=== PATIENT | male | born 1970 | race Caucasian/White ===

== ENCOUNTER 2018-06-18 10:00 | Inpatient (IN) | payer OTHER ==
[~2018-06-18 10:00] MED LIST: Acetaminophen 1,000 MG in Premix Bag 1 BAG IV SCH; EPINEPHRINE INJECT SCH; Famotidine 20 MG/2 ML SDV IVPUSH SCH; KETOROLAC INJECT SCH; Midazolam 1 MG/ML 2 ML SDV ONE; Propofol 200 MG/20 ML SDV ONE; ROPIVACAINE INJECT SCH; Ropivacaine 49.25 ML, Ketorolac 30 MG, EPINEPHrine 0.5 MG, cloNIDine 80 MCG in Sodium C... INJECT SCH; Scopolamine 1.5 MG Transdermal Patch TRDERM SCH; Sodium Chloride 0.9% 20 ML ONE; Tranexamic Acid 2,000 MG in Sodium Chloride 0.9% 100 ML IV ONE; [UNRECOGNIZED DRUG - OTHER] INJECT SCH; ceFAZolin 1 GM Vial ONE; ceFAZolin 2 GM in Premix Bag 1 BAG IV SCH; fentaNYL 100 MCG/2 ML SDV ONE
[2018-06-18] MEDS: Lactated Ringers 1,000 ML IV SCH (11:15)
--- NOTE | 2018-06-18 11:25 | PCM.PREANE ---
Preanesthetic Assessment - Anesthesia/Transfusion/Family Hx Anesthesia History: Prior Anesthesia Without Reaction Family History of Anesthesia Reaction: No Transfusion History: No Prior Transfusion(s) Intubation History: Unknown - Review of Systems General: No Symptoms Pulmonary: No Symptoms Cardiovascular: No Symptoms Gastrointestinal: No Symptoms Neurological: No Symptoms Other: Reports: None - Physical Assessment O2 Sat by Pulse Oximetry: 95 Respiratory Rate: 16 Vital Signs: Last Vital Signs Temp 36.9 C 06/18/18 11:08 Pulse 56 L 06/18/18 11:08 Resp 16 06/18/18 11:08 BP 153/84 H 06/18/18 11:08 Pulse Ox 95 06/18/18 11:08 Height: 1.8 m Weight: 80.286 kg ASA Class: 2 Mental Status: Alert & Oriented x3 Airway Class: Mallampati = 2 Dentition: Reports: Normal Dentition Thyro-Mental Finger Breadths: 3 Mouth Opening Finger Breadths: 3 ROM/Head Extension: Full Lungs: Clear to Auscultation, Normal Respiratory Effort Cardiovascular: Regular Rate, Regular Rhythm - Allergies Allergies/Adverse Reactions: Allergies Allergy/AdvReac Type Severity Reaction Status Date / Time No Known Allergies Allergy Verified 06/18/18 11:18 - Blood Blood Available: No - Anesthesia Plan Pre-Op Medication Ordered: None - Acknowledgements Anesthesia Type Planned: Spinal (general anesthesia back-up plan) PreAnesthesia Questionnaire HEENT History: Reports: Allergic Rhinitis Cardiovascular History: Reports: Heart Murmur, Hypertension, Other (See Below) Other Cardiovascular History: recently started on antihypertension medication, has a heart murmur (was checked by Cardiology) Musculoskeletal History: Reports: Fracture, Osteoarthritis (left knee) Other Musculoskeletal History: hx of bilateral fx clavicles Neurological History: Reports: Concussion - Past Surgical History Male Surgical History: Reports: Nephrectomy Other Male Surgeries/Procedures: hx of left Partial Nephrectomy at age 9 Musculoskeletal Surgical History: Reports: Arthroscopic Knee Other Musculoskeletal Surgeries/Procedures:: hx of arthroscopies left knee x4 - SUBSTANCE USE Smoking Status *Q: Current Every Day Smoker (1ppd) Tobacco Use Within Last Twelve Months: Cigarettes Recreational Drug Use History: No - HOME MEDS Home Medications: Home Meds Ibuprofen [Advil] 200 mg PO ASDIRECTED PRN 06/14/18 [History] amLODIPine [Norvasc] 5 mg PO QAM 06/15/18 [History] - CURRENT (IN HOUSE) MEDS Current Meds: Current Medications Famotidine (Pepcid) 40 mg IVPUSH ONARRIVE [facility] Last Admin: 06/18/18 11:16 Dose: 40 mg Acetaminophen 1,000 mg/ Premix 100 mls @ 400 mls/hr IV ONARRIVE [facility] Last Admin: 06/18/18 11:18 Dose: 400 mls/hr Cefazolin Sodium/Dextrose 2 gm (/ Premix) 50 mls @ 100 mls/hr IV ONCALL [facility] Lactated Ringer's (Ringers, Lactated) 1,000 mls @ 100 mls/hr IV ASDIRECTED [facility] Last Admin: 06/18/18 11:15 Dose: 100 mls/hr Ropivacaine 49.25 ml/Ketorolac Tromethamine 30 mg/Epinephrine HCl 0.5 mg/ Sodium Chloride 75 mls @ 37.5 mls/min INJECT ASDIRECTED [facility] Scopolamine (Transderm-Scop) 1.5 mg TRDERM ONARRIVE [facility] Last Admin: 06/18/18 11:16 Dose: 1.5 mg Discontinued Medications Cefazolin Sodium (Ancef) Confirm Administered Dose 2 gm .ROUTE .STK-MED ONE Stop: 06/18/18 09:27 Fentanyl (Sublimaze) Confirm Administered Dose 100 mcg .ROUTE .STK-MED ONE Stop: 06/18/18 09:23 Ropivacaine 49.25 ml/Ketorolac Tromethamine 30 mg/Epinephrine HCl 0.5 mg/ Clonidine HCl 80 mcg/ Sodium Chloride 75 mls @ 50 mls/sec INJECT ASDIRECTED [facility] Tranexamic Acid 2,000 mg/ (Sodium Chloride) 120 mls @ 600 mls/hr IV ASDIRECTED ONE Stop: 06/18/18 08:11 Sodium Chloride (Normal Saline) Confirm Administered Dose 20 mls @ as directed .ROUTE .STK-MED ONE Stop: 06/18/18 09:27 Midazolam HCl (Versed 1 Mg/Ml) Confirm Administered Dose 4 mg .ROUTE .STK-MED ONE Stop: 06/18/18 09:23 Propofol (Diprivan 20 Ml) Confirm Administered Dose 400 mg .ROUTE .STK-MED ONE Stop: 06/18/18 09:22 Tranexamic Acid (Cyklokapron) Confirm Administered Dose 2,000 mg .ROUTE .STK- MED ONE Stop: 06/18/18 08:06
[2018-06-18] MEDS ORDERED: Midazolam 1 MG/ML 2 ML SDV ONE (12:21)
[2018-06-18] MEDS ORDERED: Glycopyrrolate 0.2 MG/ML SDV ONE (12:36)
[2018-06-18] MEDS ORDERED: ePHEDrine 50 MG/ML SDV ONE (13:03)
[2018-06-18] MEDS ORDERED: Propofol 200 MG/20 ML SDV ONE (13:26)
[2018-06-18] MEDS ORDERED: Aluminum Hydroxide/Magnesium Hydroxide/Simethicone Susp 30 ML Cup PO PRN (13:40)
[2018-06-18] MEDS ORDERED: diphenhydrAMINE 25 MG Cap PO PRN (13:40)
[2018-06-18] MEDS ORDERED: Bisacodyl 10 MG Supp RECTAL PRN (13:40)
[2018-06-18] MEDS ORDERED: Ondansetron 4 MG/2 ML SDV IVPUSH PRN (13:40)
[2018-06-18] MEDS ORDERED: Morphine PF 30 MG/30 ML PCA Vial IV PRN (13:40)
[2018-06-18] MEDS ORDERED: Sodium Chloride 0.9% 10 ML Syringe FLUSH PRN (13:42)
[2018-06-18] MEDS ORDERED: Sodium Chloride 0.9% 2.5 ML Syringe FLUSH PRN (13:42)
--- NOTE | 2018-06-18 14:00 | PCM.OPNOTE ---
- General Post-Op/Procedure Note Date of Surgery/Procedure: 06/18/18 Operative Procedure(s): L TKA Post-Op Diagnosis: DJD left knee Anesthesia Technique: Moderate Sedation, Spinal Primary Surgeon: Tricia Parker Activity Specialist: Hazel Hernández Activity Specialist: Gaby Hough EBL in mLs: 50 Condition: Good Free Text/Narrative:: #[id number] Intake & Output 06/17/18 06/18/18 06/18/18 22:59 06:59 14:59 Output Total 300 Balance -300 tt=46 min
[2018-06-18] MEDS: Ketorolac 30 MG/ML SDV IVPUSH SCH ×2 (14:21→19:11)
--- NOTE | 2018-06-18 15:06 | OR ---
SURGEON: Tricia Parker MD DATE OF PROCEDURE: 06/18/2018 PREOPERATIVE DIAGNOSIS: Degenerative joint disease, left knee, tricompartmental. POSTOPERATIVE DIAGNOSIS: Degenerative joint disease, left knee, tricompartmental. PROCEDURE PERFORMED: Left total knee arthroplasty. PRIMARY SURGEON: Tricia Parker MD. SMEARER: Hazel Hernández PA-C; CHRISTOPHER Bowman; and Duane Rosa MD, PGY2. REASON AND ROLE FOR SMEARER: Retraction, prepping, draping, positioning, and closure assistance. ANESTHESIA: Spinal with sedation. ESTIMATED BLOOD LOSS: 50 mL. TOURNIQUET TIME: 46 minutes. COMPLICATIONS: None. DVT PROPHYLAXIS: PAS boot and YARELIS hose to the nonoperative leg. IMPLANTS USED: Jael Persona femoral component size 8 standard (LPS), tibial component size F, 10 mm all-polyethylene articular surface, and 35 mm all-polyethylene patella. INTRAOPERATIVE FINDINGS: Showed severe tricompartmental degenerative joint disease with grade 4 chondromalacia in all 3 compartments. The majority of wear was noted along the trochlear groove and along the undersurface of the patella. Osteophyte formation was also noted. He does have a history of Alexei-Schlatter's disease with a prominent tibial tubercle. Mild synovitis was noted within the suprapatellar compartment. BRIEF HISTORY: Ko is a 48-year-old male who has had complaint of progressive left knee pain. X-rays did show tricompartmental degenerative changes. Due to his lack of response to conservative treatment, I did recommend surgical intervention. The risks and goals of the procedure were discussed with the patient and were documented preoperatively. He agreed to proceed. DESCRIPTION OF PROCEDURE: The patient was properly identified and brought to the operating room. The patient was then transferred from the operating room cart and placed on the operating table in a supine position. Anesthesia was administered by the anesthesia staff. After adequate anesthesia was obtained, a well-padded tourniquet was applied to the surgical lower extremity. Bobby catheter was placed. The lower extremity was then prepped in standard fashion using ChloraPrep solution. It was then sterilely draped. A time-out was performed to ensure correct site and procedure. Preoperative antibiotics were given along with one gram tranexamic acid IV. The surgical site had been marked preoperatively. An Esmarch was used to exsanguinate the right lower extremity and the tourniquet was inflated. An incision was made over the anterior aspect of the knee. The subcutaneous tissues were dissected down to the level of the fascia. A medial parapatellar approach to the knee was made. A portion of the infrapatellar fat pad was then excised. The distal femur was then exposed. The step reamer was used to gain access to the intramedullary canal. This was placed in 6 degrees of valgus. Pins were placed. The distal femoral cutting block was placed and the distal femoral cut was made. Instrumentation was then removed. The femur was then sized. Both Whitesides' line and the epicondylar axis were then marked with electrocautery. The 4-in-1 cutting block was placed. This was placed in a slightly externally rotated position, which corresponded well with the previously drawn lines. The cutting guide was then pinned into position. An Mark wing guide was used to check the depth of resection of our anterior condylar cut and it was felt that no notching would occur. The anterior condylar cut was then made followed by the posterior condylar cut. Both the posterior chamfer and anterior chamfer cuts were then made. The cutting block was then removed along with the excess bony remnants. We then turned our attention to the tibia. The anterior cruciate ligament and posterior cruciate ligament were released and a posterior cruciate ligament retractor was placed to allow the tibia to be pulled anteriorly. The tibial extra-medullary guide was then positioned. We chose to take approximately 2 mm off the lowest side. The proximal tibia cutting guide was then placed and screwed into position. The proximal tibial resection was then made with care being taken to protect the patellar tendon. The bony resection was then removed. The remainder of the medial and lateral meniscus were then excised. Care was taken to protect the popliteus tendon. The tibia was then sized to the appropriate size. The distal femur was then elevated. The posterior capsule was stripped off the distal femur both medially and laterally. The posterior capsule along with the medial and lateral gutters were then injected with a standard mixture consisting of epinephrine, Toradol, and ropivacaine, unless any allergies were found preoperatively. The femoral component was then placed onto the distal femur in a slightly lateral position. This fit the femur well. A box cut was then made without difficulty. This was then removed. The tibial trial along with the polyethylene liner was then placed. The knee came easily into full extension and was stable to varus and valgus stressing both in full extension and flexion. Any additional releases were performed at this time. We then returned our attention to the patella. The patella was everted and towel clamps were used to hold the patella in position. It was resected to a 15 millimeter thickness. It was then sized to the appropriate size. It was prepared in the usual fashion after placing the predetermined size clamps. This was placed in a slightly superior and medial position. The clamp was then removed. The patellar trial button was placed. The knee was taken through a range of motion using the no-touch technique. The patella tracked centrally. A drop dale was then placed to check alignment. All instruments were then removed from the knee. The tibial sizer was then placed on the tibia. The tibia was prepared in the usual fashion using the reamer and broach. This was then removed. All bony surfaces were copiously irrigated with Pulsavac solution. They were then suctioned dry. Cement was prepared on the back table in the usual manner. Antibiotic impregnated cement was used if the patient was diabetic. Once it was prepared, the bone ends were again suctioned dry. The tibia was cemented into place first. This was malleted into position. Excess cement was then cleared. The femur was then placed in a similar manner. We placed the polyethylene trial into place and the knee was brought into full extension. An axial load was placed while keeping the knee in full extension. The patella button was also cemented into position and the clamp was used to hold this in place as the cement was allowed to cure. The wound was copiously irrigated with saline using a pulsavac combine operator. After we had adequate curing of the cement, the knee was again taken through a range of motion. The size of the polyethylene was then determined. The polyethylene trial was then removed. The tibial tray was suctioned to make sure there was no remaining soft tissue or cement. Excess cement was cleared from around the edges of the prosthesis as well. The tourniquet was then deflated. We were able to observe for any excess bleeding and none was noted. Electrocautery was used to maintain hemostasis. An additional gram of tranexamic acid was given IV. The retractors were again placed and the predetermined polyethylene was then placed. This was locked into position without difficulty. The knee was again taken through a range of motion with no change from the prior exam. The fascial layer was closed with Number One Vicryl. The subcutaneous tissues were closed with 2-0 Vicryl. The skin was closed with luis e. Xeroform gauze was placed over the wound and a bulky dressing was applied. The patient was then awakened from anesthesia and transferred back to the operating room cart. They were brought to the recovery room in stable condition. All needle and sponge counts were correct. ROHIT / SHANTI /[id number] MTDCarmela
[2018-06-18] MEDS: Acetaminophen 1,000 MG in Premix Bag 1 BAG IV SCH ×2 (16:29→22:35)
--- NOTE | 2018-06-18 17:00 | CR ---
EXAMINATION: Left knee HISTORY: Arthroplasty COMPARISON: 05/04/2018 TECHNIQUE: 2 views FINDINGS/IMPRESSION: Left total knee hardware is demonstrated in good position and alignment. Postoperative soft tissue changes are noted.
[2018-06-18] MEDS: oxyCODONE 5 MG Tab PO PRN ×2 (17:38→21:34)
[2018-06-18] MEDS: ceFAZolin 2 GM in Premix Bag 1 BAG IV SCH (21:34)
[2018-06-18] MEDS: Docusate Sodium 100 MG Cap PO SCH (21:34)
[2018-06-19] MEDS: Lactated Ringers 1,000 ML IV SCH (01:36)
[2018-06-19] MEDS: Ketorolac 30 MG/ML SDV IVPUSH SCH (01:46)
[2018-06-19] MEDS: oxyCODONE 5 MG Tab PO PRN (03:53)
[2018-06-19] MEDS: Acetaminophen 1,000 MG in Premix Bag 1 BAG IV SCH (04:00)
[2018-06-19] MEDS: ceFAZolin 2 GM in Premix Bag 1 BAG IV SCH (04:01)
[2018-06-19] MEDS ORDERED: Morphine 2 MG/ML Syringe IVPUSH PRN (06:00)
--- NOTE | 2018-06-19 07:52 | PCM.SURGPN ---
- General Info Date of Service: 06/19/18 Date of Surgery/Procedure: 06/18/18 POD#: 1 Functional Status: Reports: Pain Controlled, Other (Has been up in his room and up to the chair.) - Review of Systems General: Denies: Fever, Chills Pulmonary: Denies: Shortness of Breath Cardiovascular: Denies: Chest Pain Gastrointestinal: Denies: Abdominal Pain Genitourinary: Reports: Other (Voiding well, good UOP.) Neurological: Denies: Numbness Systems Review Comment:: Offered no complaints this am. Feels things are going well. - Patient Data Vitals - Most Recent: Last Vital Signs Temp 97.5 F 06/19/18 04:00 Pulse 46 L 06/19/18 04:00 Resp 16 06/19/18 04:00 BP 116/62 06/19/18 04:00 Pulse Ox 94 L 06/19/18 04:00 Weight - Most Recent: 177 lb I&O - Last 24 Hours: Intake & Output 06/18/18 06/19/18 06/19/18 22:59 06:59 14:59 Intake Total 250 2315 Output Total 2025 Balance 250 290 Lab Results Last 24 Hrs: Laboratory Results - last 24 hr 06/18/18 06/19/18 Range/Units 11:48 04:40 Hgb 13.3 (13.0-17.0) g/dL Hct 40.1 (38.0-50.0) % Blood Type O POSITIVE Antibody Screen NEGATIVE Med Orders - Current: Current Medications Al Hydroxide/Mg Hydroxide (Mag-Al Plus) 30 ml PO Q4H PRN PRN Reason: Indigestion Amlodipine Besylate (Norvasc) 5 mg PO QAM [facility] Aspirin (Ecotrin) 325 mg PO BID [facility] Bisacodyl (Dulcolax) 10 mg RECTAL DAILY PRN PRN Reason: Constipation Celecoxib (Celebrex) 200 mg PO BID [facility] Diphenhydramine HCl (Benadryl) 25 - 50 mg PO Q6H PRN PRN Reason: Itching Docusate Sodium (Colace) 100 mg PO BID [facility] Last Admin: 06/18/18 21:34 Dose: 100 mg Famotidine (Pepcid) 40 mg PO DAILY [facility] Lactated Ringer's (Ringers, Lactated) 1,000 mls @ 100 mls/hr IV ASDIRECTED [facility] Last Admin: 06/19/18 01:36 Dose: 100 mls/hr Morphine Sulfate (Morphine) 1 - 3 mg IVPUSH Q3H PRN PRN Reason: Pain Ondansetron HCl (Zofran) 4 mg IVPUSH Q6H PRN PRN Reason: Nausea/Vomiting Oxycodone/Acetaminophen (Percocet 325-5 Mg) 1 - 2 tab PO Q4H PRN PRN Reason: Pain Polyethylene Glycol (Miralax) 17 gm PO DAILY [facility] Scopolamine (Transderm-Scop) 1.5 mg TRDERM ONARRIVE [facility] Last Admin: 06/18/18 11:16 Dose: 1.5 mg Sodium Chloride (Saline Flush) 10 ml FLUSH ASDIRECTED PRN PRN Reason: Keep Vein Open Sodium Chloride (Saline Flush) 2.5 ml FLUSH ASDIRECTED PRN PRN Reason: Keep Vein Open Discontinued Medications Cefazolin Sodium (Ancef) Confirm Administered Dose 2 gm .ROUTE .STK-MED ONE Stop: 06/18/18 09:27 Ephedrine Sulfate (Ephedrine Sulfate) Confirm Administered Dose 50 mg .ROUTE .STK-MED ONE Stop: 06/18/18 13:04 Famotidine (Pepcid) 40 mg IVPUSH ONARRIVE [facility] Last Admin: 06/18/18 11:16 Dose: 40 mg Fentanyl (Sublimaze) Confirm Administered Dose 100 mcg .ROUTE .STK-MED ONE Stop: 06/18/18 09:23 Glycopyrrolate (Robinul) Confirm Administered Dose 0.2 mg .ROUTE .STK-MED ONE Stop: 06/18/18 12:37 Acetaminophen 1,000 mg/ Premix 100 mls @ 400 mls/hr IV ONARRIVE [facility] Last Admin: 06/18/18 11:18 Dose: 400 mls/hr Cefazolin Sodium/Dextrose 2 gm (/ Premix) 50 mls @ 100 mls/hr IV ONCALL [facility] Ropivacaine 49.25 ml/Ketorolac Tromethamine 30 mg/Epinephrine HCl 0.5 mg/ Clonidine HCl 80 mcg/ Sodium Chloride 75 mls @ 50 mls/sec INJECT ASDIRECTED [facility] Tranexamic Acid 2,000 mg/ (Sodium Chloride) 120 mls @ 600 mls/hr IV ASDIRECTED ONE Stop: 06/18/18 08:11 Last Admin: 06/18/18 21:01 Dose: Not Given Ropivacaine 49.25 ml/Ketorolac Tromethamine 30 mg/Epinephrine HCl 0.5 mg/ Sodium Chloride 75 mls @ 37.5 mls/min INJECT ASDIRECTED [facility] Sodium Chloride (Normal Saline) Confirm Administered Dose 20 mls @ as directed .ROUTE .STK-MED ONE Stop: 06/18/18 09:27 Acetaminophen 1,000 mg/ Premix 100 mls @ 400 mls/hr IV Q6H [facility] Stop: 06/19/18 05:14 Last Admin: 06/19/18 04:00 Dose: 400 mls/hr Cefazolin Sodium/Dextrose 2 gm (/ Premix) 50 mls @ 100 mls/hr IV Q8H [facility] Stop: 06/19/18 05:29 Last Admin: 06/19/18 04:01 Dose: 100 mls/hr Ketorolac Tromethamine (Toradol) 30 mg IVPUSH Q6H [facility] Stop: 06/19/18 05:00 Last Admin: 06/19/18 01:46 Dose: 30 mg Midazolam HCl (Versed 1 Mg/Ml) Confirm Administered Dose 4 mg .ROUTE .STK-MED ONE Stop: 06/18/18 09:23 Midazolam HCl (Versed 1 Mg/Ml) Confirm Administered Dose 2 mg .ROUTE .STK-MED ONE Stop: 06/18/18 12:22 Morphine Sulfate (Morphine [employer] 30 Mg In 30 Ml) 30 mg IV ASDIRECTED PRN; Protocol PRN Reason: Pain Stop: 06/19/18 06:00 Last Admin: 06/18/18 14:22 Dose: 30 mg Oxycodone HCl (Oxycodone) 5 - 10 mg PO Q4H PRN PRN Reason: Pain Stop: 06/19/18 06:00 Last Admin: 06/19/18 03:53 Dose: 5 mg Propofol (Diprivan 20 Ml) Confirm Administered Dose 400 mg .ROUTE .STK-MED ONE Stop: 06/18/18 09:22 Propofol (Diprivan 20 Ml) Confirm Administered Dose 200 mg .ROUTE .STK-MED ONE Stop: 06/18/18 13:27 Tranexamic Acid (Cyklokapron) Confirm Administered Dose 2,000 mg .ROUTE .STK- MED ONE Stop: 06/18/18 08:06 - Exam Wound/Incisions: Other (Polar care machine in place. Dressings appear clean and dry.) General: Alert, Oriented, Cooperative, No Acute Distress Lungs: Normal Respiratory Effort Cardiovascular: Regular Rate, Regular Rhythm GI/Abdominal Exam: Soft, Non-Tender Skin: Warm, Dry Neurological: No New Focal Deficit Physical Findings Comment:: Left knee has good post operative active and passive ROM. With passive ROM I do not appreciate any clicking with flexion or extension. There is no varus or valgus laxity. He has good motor function of his left ankle. Sensation to his left lower extremity is intact and equal to sensation in his right leg. - Problem List Review Problem List Initiated/Reviewed/Updated: Yes - My Orders Last 24 Hours: Active Orders 24 hr Category Date Time Status Communication Order [RC] PRN Care 06/18/18 13:40 Active Communication Order [RC] PRN Care 06/18/18 13:40 Active Neurovascular Check [RC] Q2HR Care 06/18/18 13:40 Active Notify Provider Vital Signs [RC] ASDIRECTED Care 06/18/18 13:40 Active RT Incentive Spirometry [RC] Q1HWA Care 06/18/18 13:40 Active Urinary Catheter Assessment [RC] ASDIRECTED Care 06/18/18 08:00 Active Urinary Catheter Removal [RC] ASDIRECTED Care 06/19/18 06:00 Active Vital Signs [RC] PER UNIT ROUTINE Care 06/18/18 13:40 Active Wound Care [RC] DAILY Care 06/18/18 13:40 Active PT Evaluation and Treatment [CONS] Routine Cons 06/18/18 13:40 Active HEMOGLOBIN/HEMATOCRIT,HH [HEME] DAILY Lab 06/20/18 06:00 Ordered Acetaminophen/oxyCODONE [Percocet 325-5 MG] Med 06/19/18 06:00 Active 1 - 2 tab PO Q4H PRN Alum Hydrox/Mag Hydrox/Simeth [Mag-Al Plus] Med 06/18/18 13:40 Active 30 ml PO Q4H PRN Aspirin [Ecotrin] Med 06/19/18 09:00 Active 325 mg PO BID Bisacodyl [Dulcolax] Med 06/18/18 13:40 Active 10 mg RECTAL DAILY PRN Celecoxib [CeleBREX] Med 06/19/18 09:00 Active 200 mg PO BID Docusate Sodium [Colace] Med 06/18/18 21:00 Active 100 mg PO BID Famotidine [Pepcid] Med 06/19/18 09:00 Active 40 mg PO DAILY Morphine Med 06/19/18 06:00 Active 1 - 3 mg IVPUSH Q3H PRN Ondansetron [Zofran] Med 06/18/18 13:40 Active 4 mg IVPUSH Q6H PRN Polyethylene Glycol 3350 [MiraLAX] Med 06/19/18 09:00 Active 17 gm PO DAILY Sodium Chloride 0.9% [Saline Flush] Med 06/18/18 13:42 Active 10 ml FLUSH ASDIRECTED PRN Sodium Chloride 0.9% [Saline Flush] Med 06/18/18 13:42 Active 2.5 ml FLUSH ASDIRECTED PRN amLODIPine [Norvasc] Med 06/19/18 09:00 Active 5 mg PO QAM diphenhydrAMINE [Benadryl] Med 06/18/18 13:40 Active 25 - 50 mg PO Q6H PRN Convert IV to Saline Lock [OM.PC] PRN Oth 06/19/18 06:00 Ordered Ice Therapy [OM.PC] Routine Oth 06/18/18 13:40 Ordered Medication Orders Al Hydroxide/Mg Hydroxide (Mag-Al Plus) 30 ml PO Q4H PRN PRN Reason: Indigestion Amlodipine Besylate (Norvasc) 5 mg PO QAM [facility] Aspirin (Ecotrin) 325 mg PO BID [facility] Bisacodyl (Dulcolax) 10 mg RECTAL DAILY PRN PRN Reason: Constipation Celecoxib (Celebrex) 200 mg PO BID [facility] Diphenhydramine HCl (Benadryl) 25 - 50 mg PO Q6H PRN PRN Reason: Itching Docusate Sodium (Colace) 100 mg PO BID [facility] Last Admin: 06/18/18 21:34 Dose: 100 mg Famotidine (Pepcid) 40 mg PO DAILY [facility] Lactated Ringer's (Ringers, Lactated) 1,000 mls @ 100 mls/hr IV ASDIRECTED [facility] Last Admin: 06/19/18 01:36 Dose: 100 mls/hr Infusion: 06/18/18 21:15 Dose: 100 mls/hr Admin: 06/18/18 11:15 Dose: 100 mls/hr Morphine Sulfate (Morphine) 1 - 3 mg IVPUSH Q3H PRN PRN Reason: Pain Ondansetron HCl (Zofran) 4 mg IVPUSH Q6H PRN PRN Reason: Nausea/Vomiting Oxycodone/Acetaminophen (Percocet 325-5 Mg) 1 - 2 tab PO Q4H PRN PRN Reason: Pain Polyethylene Glycol (Miralax) 17 gm PO DAILY [facility] Scopolamine (Transderm-Scop) 1.5 mg TRDERM ONARRIVE [facility] Last Admin: 06/18/18 11:16 Dose: 1.5 mg Sodium Chloride (Saline Flush) 10 ml FLUSH ASDIRECTED PRN PRN Reason: Keep Vein Open Sodium Chloride (Saline Flush) 2.5 ml FLUSH ASDIRECTED PRN PRN Reason: Keep Vein Open - Assessment Assessment (Free Text/Narrative):: POD 1 s/p left total knee. His pain is well controlled. He is working on increasing his activity but offers no complaints today and is doing well. - Plan Plan (Free Text/Narrative):: - DC IVF and [employer]OCI[employer] HISTORY - Regular diet - Physical therapy, should increase activity and work on ROM exercises. - Percocet and morphine PRN for pain - Zofran and scopolamine patch for nausea but has not had any. - Aspirin 325 mg BID for DVT prophylaxis. - Continue Ice Therapy - Expect to DC later today - Will discuss further plans with Dr. Parker.
--- NOTE | 2018-06-19 08:36 | PCM.SURGPN ---
<Pattie Hernándezah R - Last Filed: 06/19/18 08:32> - General Info Date of Service: 06/19/18 Date of Surgery/Procedure: 06/18/18 POD#: 1 Functional Status: Reports: Pain Controlled, Tolerating Diet, Ambulating, Urinating - Review of Systems General: Reports: No Symptoms Pulmonary: Reports: No Symptoms Cardiovascular: Reports: No Symptoms Gastrointestinal: Reports: Diarrhea Genitourinary: Reports: No Symptoms Systems Review Comment:: pt resting comfortably in bed has been up to chair for breakfast tolerating PO intake well pain controlled with PO pain medications no specific concerns today - Patient Data Vitals - Most Recent: Last Vital Signs Temp 98.1 F 06/19/18 07:59 Pulse 57 L 06/19/18 07:59 Resp 16 06/19/18 07:59 BP 114/60 06/19/18 07:59 Pulse Ox 94 L 06/19/18 07:59 Weight - Most Recent: 80.286 kg I&O - Last 24 Hours: Intake & Output 06/18/18 06/19/18 06/19/18 22:59 06:59 14:59 Intake Total 250 2315 Output Total 2025 Balance 250 290 Lab Results Last 24 Hrs: Laboratory Results - last 24 hr 06/18/18 06/19/18 Range/Units 11:48 04:40 Hgb 13.3 (13.0-17.0) g/dL Hct 40.1 (38.0-50.0) % Blood Type O POSITIVE Antibody Screen NEGATIVE Med Orders - Current: Current Medications Al Hydroxide/Mg Hydroxide (Mag-Al Plus) 30 ml PO Q4H PRN PRN Reason: Indigestion Amlodipine Besylate (Norvasc) 5 mg PO QAM [facility] Aspirin (Ecotrin) 325 mg PO BID [facility] Bisacodyl (Dulcolax) 10 mg RECTAL DAILY PRN PRN Reason: Constipation Celecoxib (Celebrex) 200 mg PO BID [facility] Diphenhydramine HCl (Benadryl) 25 - 50 mg PO Q6H PRN PRN Reason: Itching Docusate Sodium (Colace) 100 mg PO BID [facility] Last Admin: 06/18/18 21:34 Dose: 100 mg Famotidine (Pepcid) 40 mg PO DAILY [facility] Morphine Sulfate (Morphine) 1 - 3 mg IVPUSH Q3H PRN PRN Reason: Pain Ondansetron HCl (Zofran) 4 mg IVPUSH Q6H PRN PRN Reason: Nausea/Vomiting Oxycodone/Acetaminophen (Percocet 325-5 Mg) 1 - 2 tab PO Q4H PRN PRN Reason: Pain Polyethylene Glycol (Miralax) 17 gm PO DAILY [facility] Scopolamine (Transderm-Scop) 1.5 mg TRDERM ONARRIVE [facility] Last Admin: 06/18/18 11:16 Dose: 1.5 mg Sodium Chloride (Saline Flush) 10 ml FLUSH ASDIRECTED PRN PRN Reason: Keep Vein Open Sodium Chloride (Saline Flush) 2.5 ml FLUSH ASDIRECTED PRN PRN Reason: Keep Vein Open Discontinued Medications Cefazolin Sodium (Ancef) Confirm Administered Dose 2 gm .ROUTE .STK-MED ONE Stop: 06/18/18 09:27 Ephedrine Sulfate (Ephedrine Sulfate) Confirm Administered Dose 50 mg .ROUTE .STK-MED ONE Stop: 06/18/18 13:04 Famotidine (Pepcid) 40 mg IVPUSH ONARRIVE [facility] Last Admin: 06/18/18 11:16 Dose: 40 mg Fentanyl (Sublimaze) Confirm Administered Dose 100 mcg .ROUTE .STK-MED ONE Stop: 06/18/18 09:23 Glycopyrrolate (Robinul) Confirm Administered Dose 0.2 mg .ROUTE .STK-MED ONE Stop: 06/18/18 12:37 Acetaminophen 1,000 mg/ Premix 100 mls @ 400 mls/hr IV ONARRIVE [facility] Last Admin: 06/18/18 11:18 Dose: 400 mls/hr Cefazolin Sodium/Dextrose 2 gm (/ Premix) 50 mls @ 100 mls/hr IV ONCALL [facility] Ropivacaine 49.25 ml/Ketorolac Tromethamine 30 mg/Epinephrine HCl 0.5 mg/ Clonidine HCl 80 mcg/ Sodium Chloride 75 mls @ 50 mls/sec INJECT ASDIRECTED [facility] Lactated Ringer's (Ringers, Lactated) 1,000 mls @ 100 mls/hr IV ASDIRECTED [facility] Last Admin: 06/19/18 01:36 Dose: 100 mls/hr Tranexamic Acid 2,000 mg/ (Sodium Chloride) 120 mls @ 600 mls/hr IV ASDIRECTED ONE Stop: 06/18/18 08:11 Last Admin: 06/18/18 21:01 Dose: Not Given Ropivacaine 49.25 ml/Ketorolac Tromethamine 30 mg/Epinephrine HCl 0.5 mg/ Sodium Chloride 75 mls @ 37.5 mls/min INJECT ASDIRECTED [facility] Sodium Chloride (Normal Saline) Confirm Administered Dose 20 mls @ as directed .ROUTE .STK-MED ONE Stop: 06/18/18 09:27 Acetaminophen 1,000 mg/ Premix 100 mls @ 400 mls/hr IV Q6H [facility] Stop: 06/19/18 05:14 Last Admin: 06/19/18 04:00 Dose: 400 mls/hr Cefazolin Sodium/Dextrose 2 gm (/ Premix) 50 mls @ 100 mls/hr IV Q8H [facility] Stop: 06/19/18 05:29 Last Admin: 06/19/18 04:01 Dose: 100 mls/hr Ketorolac Tromethamine (Toradol) 30 mg IVPUSH Q6H [facility] Stop: 06/19/18 05:00 Last Admin: 06/19/18 01:46 Dose: 30 mg Midazolam HCl (Versed 1 Mg/Ml) Confirm Administered Dose 4 mg .ROUTE .STK-MED ONE Stop: 06/18/18 09:23 Midazolam HCl (Versed 1 Mg/Ml) Confirm Administered Dose 2 mg .ROUTE .STK-MED ONE Stop: 06/18/18 12:22 Morphine Sulfate (Morphine Underwater Trapper 30 Mg In 30 Ml) 30 mg IV ASDIRECTED PRN; Protocol PRN Reason: Pain Stop: 06/19/18 06:00 Last Admin: 06/18/18 14:22 Dose: 30 mg Oxycodone HCl (Oxycodone) 5 - 10 mg PO Q4H PRN PRN Reason: Pain Stop: 06/19/18 06:00 Last Admin: 06/19/18 03:53 Dose: 5 mg Propofol (Diprivan 20 Ml) Confirm Administered Dose 400 mg .ROUTE .STK-MED ONE Stop: 06/18/18 09:22 Propofol (Diprivan 20 Ml) Confirm Administered Dose 200 mg .ROUTE .STK-MED ONE Stop: 06/18/18 13:27 Tranexamic Acid (Cyklokapron) Confirm Administered Dose 2,000 mg .ROUTE .STK- MED ONE Stop: 06/18/18 08:06 - Exam Wound/Incisions: Dressing Dry and Intact General: Alert, Oriented Cardiovascular: Regular Rate, Regular Rhythm Extremities: Other (exam LLE - at/ehl/gastroc 5/5, dp 2+, sensation intact distally) Physical Findings Comment:: vss, afeb slightly bradycardic but pt denies symptoms uo 2325mL hgb 13.3 - Problem List & Annotations (1) S/P total knee arthroplasty SNOMED Code(s): 5504256127148, [id number], 4986080132860 Code(s): Z96.659 - PRESENCE OF UNSPECIFIED ARTIFICIAL KNEE JOINT Status: Acute Current Visit: Yes - Problem List Review Problem List Initiated/Reviewed/Updated: Yes - My Orders Last 24 Hours: Active Orders 24 hr Category Date Time Status Communication Order [RC] PRN Care 06/18/18 13:40 Active Communication Order [RC] PRN Care 06/18/18 13:40 Active Neurovascular Check [RC] Q2HR Care 06/18/18 13:40 Active Notify Provider Vital Signs [RC] ASDIRECTED Care 06/18/18 13:40 Active RT Incentive Spirometry [RC] Q1HWA Care 06/18/18 13:40 Active Urinary Catheter Assessment [RC] ASDIRECTED Care 06/18/18 08:00 Active Urinary Catheter Removal [RC] ASDIRECTED Care 06/19/18 06:00 Active Vital Signs [RC] PER UNIT ROUTINE Care 06/18/18 13:40 Active Wound Care [RC] DAILY Care 06/18/18 13:40 Active PT Evaluation and Treatment [CONS] Routine Cons 06/18/18 13:40 Active HEMOGLOBIN/HEMATOCRIT,HH [HEME] DAILY Lab 06/20/18 06:00 Ordered Acetaminophen/oxyCODONE [Percocet 325-5 MG] Med 06/19/18 06:00 Active 1 - 2 tab PO Q4H PRN Alum Hydrox/Mag Hydrox/Simeth [Mag-Al Plus] Med 06/18/18 13:40 Active 30 ml PO Q4H PRN Aspirin [Ecotrin] Med 06/19/18 09:00 Active 325 mg PO BID Bisacodyl [Dulcolax] Med 06/18/18 13:40 Active 10 mg RECTAL DAILY PRN Celecoxib [CeleBREX] Med 06/19/18 09:00 Active 200 mg PO BID Docusate Sodium [Colace] Med 06/18/18 21:00 Active 100 mg PO BID Famotidine [Pepcid] Med 06/19/18 09:00 Active 40 mg PO DAILY Morphine Med 06/19/18 06:00 Active 1 - 3 mg IVPUSH Q3H PRN Ondansetron [Zofran] Med 06/18/18 13:40 Active 4 mg IVPUSH Q6H PRN Polyethylene Glycol 3350 [MiraLAX] Med 06/19/18 09:00 Active 17 gm PO DAILY Sodium Chloride 0.9% [Saline Flush] Med 06/18/18 13:42 Active 10 ml FLUSH ASDIRECTED PRN Sodium Chloride 0.9% [Saline Flush] Med 06/18/18 13:42 Active 2.5 ml FLUSH ASDIRECTED PRN amLODIPine [Norvasc] Med 06/19/18 09:00 Active 5 mg PO QAM diphenhydrAMINE [Benadryl] Med 06/18/18 13:40 Active 25 - 50 mg PO Q6H PRN Convert IV to Saline Lock [OM.PC] PRN Oth 06/19/18 06:00 Ordered Ice Therapy [OM.PC] Routine Oth 06/18/18 13:40 Ordered Medication Orders Al Hydroxide/Mg Hydroxide (Mag-Al Plus) 30 ml PO Q4H PRN PRN Reason: Indigestion Amlodipine Besylate (Norvasc) 5 mg PO QAM [facility] Aspirin (Ecotrin) 325 mg PO BID [facility] Bisacodyl (Dulcolax) 10 mg RECTAL DAILY PRN PRN Reason: Constipation Celecoxib (Celebrex) 200 mg PO BID [facility] Diphenhydramine HCl (Benadryl) 25 - 50 mg PO Q6H PRN PRN Reason: Itching Docusate Sodium (Colace) 100 mg PO BID [facility] Last Admin: 06/18/18 21:34 Dose: 100 mg Famotidine (Pepcid) 40 mg PO DAILY [facility] Morphine Sulfate (Morphine) 1 - 3 mg IVPUSH Q3H PRN PRN Reason: Pain Ondansetron HCl (Zofran) 4 mg IVPUSH Q6H PRN PRN Reason: Nausea/Vomiting Oxycodone/Acetaminophen (Percocet 325-5 Mg) 1 - 2 tab PO Q4H PRN PRN Reason: Pain Polyethylene Glycol (Miralax) 17 gm PO DAILY [facility] Scopolamine (Transderm-Scop) 1.5 mg TRDERM ONARRIVE [facility] Last Admin: 06/18/18 11:16 Dose: 1.5 mg Sodium Chloride (Saline Flush) 10 ml FLUSH ASDIRECTED PRN PRN Reason: Keep Vein Open Sodium Chloride (Saline Flush) 2.5 ml FLUSH ASDIRECTED PRN PRN Reason: Keep Vein Open - Assessment Assessment (Free Text/Narrative):: POD#1 L TKA - Plan Plan (Free Text/Narrative):: DC IV fluids - saline lock IV DC laureano DC [employer] - morphine IV prn breakthrough pain DC oxycodone - percocet 5/325 prn available ASA 325mg PO BID as DVT prophylaxis will change dressing to aquacel prior to discharge PT today pt has wheeled walker or script has been written anticipate up to 72 hour stay for IV pain medication and continued physical therapy pt will require FWW for safe mobility/stability until increased strength/gait independence s/p TKA - has been safely mobilizing in room with FWW. d/ch medications written <Tricia Parker R - Last Filed: 06/19/18 17:10> - Patient Data Vitals - Most Recent: Last Vital Signs Temp 99.3 F 06/19/18 16:00 Pulse 56 L 06/19/18 16:00 Resp 18 06/19/18 16:00 BP 139/93 H 06/19/18 16:00 Pulse Ox 99 06/19/18 16:00 I&O - Last 24 Hours: Intake & Output 06/19/18 06/19/18 06/19/18 06:59 14:59 22:59 Intake Total 2315 975 Output Total 2025 450 Balance 290 525 Lab Results Last 24 Hrs: Laboratory Results - last 24 hr 06/19/18 Range/Units 04:40 Hgb 13.3 (13.0-17.0) g/dL Hct 40.1 (38.0-50.0) % Med Orders - Current: Current Medications Al Hydroxide/Mg Hydroxide (Mag-Al Plus) 30 ml PO Q4H PRN PRN Reason: Indigestion Amlodipine Besylate (Norvasc) 5 mg PO QAM [facility] Last Admin: 06/19/18 09:35 Dose: 5 mg Aspirin (Ecotrin) 325 mg PO BID [facility] Last Admin: 06/19/18 09:35 Dose: 325 mg Bisacodyl (Dulcolax) 10 mg RECTAL DAILY PRN PRN Reason: Constipation Celecoxib (Celebrex) 200 mg PO BID [facility] Last Admin: 06/19/18 09:34 Dose: 200 mg Diphenhydramine HCl (Benadryl) 25 - 50 mg PO Q6H PRN PRN Reason: Itching Docusate Sodium (Colace) 100 mg PO BID [facility] Last Admin: 06/19/18 09:34 Dose: 100 mg Famotidine (Pepcid) 40 mg PO DAILY [facility] Last Admin: 06/19/18 09:34 Dose: 40 mg Morphine Sulfate (Morphine) 1 - 3 mg IVPUSH Q3H PRN PRN Reason: Pain Ondansetron HCl (Zofran) 4 mg IVPUSH Q6H PRN PRN Reason: Nausea/Vomiting Oxycodone/Acetaminophen (Percocet 325-5 Mg) 1 - 2 tab PO Q4H PRN PRN Reason: Pain Last Admin: 06/19/18 16:24 Dose: 2 tab Polyethylene Glycol (Miralax) 17 gm PO DAILY [facility] Last Admin: 06/19/18 09:35 Dose: 17 gm Scopolamine (Transderm-Scop) 1.5 mg TRDERM ONARRIVE [facility] Last Admin: 06/18/18 11:16 Dose: 1.5 mg Sodium Chloride (Saline Flush) 10 ml FLUSH ASDIRECTED PRN PRN Reason: Keep Vein Open Sodium Chloride (Saline Flush) 2.5 ml FLUSH ASDIRECTED PRN PRN Reason: Keep Vein Open Discontinued Medications Cefazolin Sodium (Ancef) Confirm Administered Dose 2 gm .ROUTE .STK-MED ONE Stop: 06/18/18 09:27 Ephedrine Sulfate (Ephedrine Sulfate) Confirm Administered Dose 50 mg .ROUTE .STK-MED ONE Stop: 06/18/18 13:04 Famotidine (Pepcid) 40 mg IVPUSH ONARRIVE [facility] Last Admin: 06/18/18 11:16 Dose: 40 mg Fentanyl (Sublimaze) Confirm Administered Dose 100 mcg .ROUTE .STK-MED ONE Stop: 06/18/18 09:23 Glycopyrrolate (Robinul) Confirm Administered Dose 0.2 mg .ROUTE .STK-MED ONE Stop: 06/18/18 12:37 Acetaminophen 1,000 mg/ Premix 100 mls @ 400 mls/hr IV ONARRIVE [facility] Last Admin: 06/18/18 11:18 Dose: 400 mls/hr Cefazolin Sodium/Dextrose 2 gm (/ Premix) 50 mls @ 100 mls/hr IV ONCALL [facility] Ropivacaine 49.25 ml/Ketorolac Tromethamine 30 mg/Epinephrine HCl 0.5 mg/ Clonidine HCl 80 mcg/ Sodium Chloride 75 mls @ 50 mls/sec INJECT ASDIRECTED [facility] Lactated Ringer's (Ringers, Lactated) 1,000 mls @ 100 mls/hr IV ASDIRECTED [facility] Last Admin: 06/19/18 01:36 Dose: 100 mls/hr Tranexamic Acid 2,000 mg/ (Sodium Chloride) 120 mls @ 600 mls/hr IV ASDIRECTED [facility] Stop: 06/18/18 08:11 Last Admin: 06/18/18 21:01 Dose: Not Given Ropivacaine 49.25 ml/Ketorolac Tromethamine 30 mg/Epinephrine HCl 0.5 mg/ Sodium Chloride 75 mls @ 37.5 mls/min INJECT ASDIRECTED [facility] Sodium Chloride (Normal Saline) Confirm Administered Dose 20 mls @ as directed .ROUTE .STK-MED ONE Stop: 06/18/18 09:27 Acetaminophen 1,000 mg/ Premix 100 mls @ 400 mls/hr IV Q6H [facility] Stop: 06/19/18 05:14 Last Admin: 06/19/18 04:00 Dose: 400 mls/hr Cefazolin Sodium/Dextrose 2 gm (/ Premix) 50 mls @ 100 mls/hr IV Q8H [facility] Stop: 06/19/18 05:29 Last Admin: 06/19/18 04:01 Dose: 100 mls/hr Ketorolac Tromethamine (Toradol) 30 mg IVPUSH Q6H [facility] Stop: 06/19/18 05:00 Last Admin: 06/19/18 01:46 Dose: 30 mg Midazolam HCl (Versed 1 Mg/Ml) Confirm Administered Dose 4 mg .ROUTE .STK-MED ONE Stop: 06/18/18 09:23 Midazolam HCl (Versed 1 Mg/Ml) Confirm Administered Dose 2 mg .ROUTE .STK-MED ONE Stop: 06/18/18 12:22 Morphine Sulfate (Morphine Underwater Trapper 30 Mg In 30 Ml) 30 mg IV ASDIRECTED PRN; Protocol PRN Reason: Pain Stop: 06/19/18 06:00 Last Admin: 06/18/18 14:22 Dose: 30 mg Oxycodone HCl (Oxycodone) 5 - 10 mg PO Q4H PRN PRN Reason: Pain Stop: 06/19/18 06:00 Last Admin: 06/19/18 03:53 Dose: 5 mg Propofol (Diprivan 20 Ml) Confirm Administered Dose 400 mg .ROUTE .STK-MED ONE Stop: 06/18/18 09:22 Propofol (Diprivan 20 Ml) Confirm Administered Dose 200 mg .ROUTE .STK-MED ONE Stop: 06/18/18 13:27 Tranexamic Acid (Cyklokapron) Confirm Administered Dose 2,000 mg .ROUTE .STK- MED ONE Stop: 06/18/18 08:06 - My Orders Last 24 Hours: Active Orders 24 hr Category Date Time Status Ready for Discharge [RC] PER UNIT ROUTINE Care 06/19/18 15:30 Active Urinary Catheter Removal [RC] ASDIRECTED Care 06/19/18 06:00 Active HEMOGLOBIN/HEMATOCRIT,HH [HEME] DAILY Lab 06/20/18 06:00 Ordered Acetaminophen/oxyCODONE [Percocet 325-5 MG] Med 06/19/18 06:00 Active 1 - 2 tab PO Q4H PRN Aspirin [Ecotrin] Med 06/19/18 09:00 Active 325 mg PO BID Celecoxib [CeleBREX] Med 06/19/18 09:00 Active 200 mg PO BID Docusate Sodium [Colace] Med 06/18/18 21:00 Active 100 mg PO BID Famotidine [Pepcid] Med 06/19/18 09:00 Active 40 mg PO DAILY Morphine Med 06/19/18 06:00 Active 1 - 3 mg IVPUSH Q3H PRN Polyethylene Glycol 3350 [MiraLAX] Med 06/19/18 09:00 Active 17 gm PO DAILY amLODIPine [Norvasc] Med 06/19/18 09:00 Active 5 mg PO QAM Convert IV to Saline Lock [OM.PC] PRN Oth 06/19/18 06:00 Ordered Medication Orders Al Hydroxide/Mg Hydroxide (Mag-Al Plus) 30 ml PO Q4H PRN PRN Reason: Indigestion Amlodipine Besylate (Norvasc) 5 mg PO QAM [facility] Last Admin: 06/19/18 09:35 Dose: 5 mg Aspirin (Ecotrin) 325 mg PO BID [facility] Last Admin: 06/19/18 09:35 Dose: 325 mg Bisacodyl (Dulcolax) 10 mg RECTAL DAILY PRN PRN Reason: Constipation Celecoxib (Celebrex) 200 mg PO BID [facility] Last Admin: 06/19/18 09:34 Dose: 200 mg Diphenhydramine HCl (Benadryl) 25 - 50 mg PO Q6H PRN PRN Reason: Itching Docusate Sodium (Colace) 100 mg PO BID [facility] Last Admin: 06/19/18 09:34 Dose: 100 mg Admin: 06/18/18 21:34 Dose: 100 mg Famotidine (Pepcid) 40 mg PO DAILY [facility] Last Admin: 06/19/18 09:34 Dose: 40 mg Morphine Sulfate (Morphine) 1 - 3 mg IVPUSH Q3H PRN PRN Reason: Pain Ondansetron HCl (Zofran) 4 mg IVPUSH Q6H PRN PRN Reason: Nausea/Vomiting Oxycodone/Acetaminophen (Percocet 325-5 Mg) 1 - 2 tab PO Q4H PRN PRN Reason: Pain Last Admin: 06/19/18 16:24 Dose: 2 tab Admin: 06/19/18 12:53 Dose: 2 tab Admin: 06/19/18 09:35 Dose: 2 tab Polyethylene Glycol (Miralax) 17 gm PO DAILY [facility] Last Admin: 06/19/18 09:35 Dose: 17 gm Scopolamine (Transderm-Scop) 1.5 mg TRDERM ONARRIVE [facility] Last Admin: 06/18/18 11:16 Dose: 1.5 mg Sodium Chloride (Saline Flush) 10 ml FLUSH ASDIRECTED PRN PRN Reason: Keep Vein Open Sodium Chloride (Saline Flush) 2.5 ml FLUSH ASDIRECTED PRN PRN Reason: Keep Vein Open - Plan Plan (Free Text/Narrative):: 1330 Patient seen and examined. Agree with the above note. His pain has been well- controlled with oral pain medications. He is progressing well with physical therapy. His hemoglobin is stable. At this point the patient feels he is ready to go home. Will plan on having him see afternoon therapy. If he progresses well with that, will plan for discharge later today. He will continue with outpatient physical therapy. Patient is in agreement with the plan. edvin
[2018-06-19] MEDS ORDERED: amLODIPine 5 MG Tab PO SCH (09:00)
[2018-06-19] MEDS ORDERED: Famotidine 20 MG Tab PO SCH (09:00)
[2018-06-19] MEDS ORDERED: Celecoxib 100 MG Cap PO SCH (09:00)
[2018-06-19] MEDS ORDERED: Polyethylene Glycol 3350 Powder 17 GM Packet PO SCH (09:00)
[2018-06-19] MEDS ORDERED: Aspirin 325 MG Tab.EC PO SCH (09:00)
[2018-06-19] MEDS: Docusate Sodium 100 MG Cap PO SCH (09:34)
[2018-06-19] MEDS: Acetaminophen/oxyCODONE 325-5 MG Tab PO PRN ×3 (09:35→16:24)
--- NOTE | 2018-06-19 15:03 | PCM48HPAN ---
Post Anesthesia Note - EVALUATION WITHIN 48HRS OF ANESTHETIC Vital Signs in Normal Range: Yes Patient Participated in Evaluation: Yes Respiratory Function Stable: Yes Airway Patent: Yes Cardiovascular Function Stable: Yes Hydration Status Stable: Yes Pain Control Satisfactory: Yes Nausea and Vomiting Control Satisfactory: Yes Mental Status Recovered: Yes Resp Rate: 16 Blood Pressure: 114/60 - COMMENTS/OBSERVATIONS Free Text/Narrative:: Denies any complaints. Has been up walking.
--- NOTE | 2018-06-19 16:23 | PCM.SN ---
- Free Text/Narrative Note: d/ch summary #[id number] nursing will change dressing to aquacel prior to discharge
--- NOTE | 2018-06-20 07:40 | DISCH ---
DATE OF DISCHARGE: 06/19/2018 PRIMARY CARE PHYSICIAN: Kely Berumen NP ADMITTING DIAGNOSIS: Degenerative joint disease, left knee, tricompartmental. OTHER MEDICAL DIAGNOSES: 1. Hypertension. 2. Heart murmur. 3. Status post partial nephrectomy. DISCHARGE DIAGNOSES: 1. Degenerative joint disease, left knee, tricompartmental. 2. Hypertension. 3. Heart murmur. 4. Status post partial nephrectomy. BRIEF HISTORY: Ko is a 48-year-old male, who has had progressive complaints of left knee pain. He has tried and failed conservative treatment. At that time, surgical treatment was recommended. On June 18, 2018, the patient underwent a left total knee arthroplasty done by Dr. Tricia Parker here. It was done under spinal anesthesia with sedation. Estimated blood loss was 50 mL. Tourniquet time was 46 minutes. There were no known complications. Upon completion of the procedure, the patient was transferred to the PACU and subsequently to Med/Surg for postoperative care. HOSPITAL COURSE: Postoperatively, the patient did well. He received 2 doses of antibiotics postoperatively for a total of 24 hours of antibiotic coverage. His pain was controlled with a combination of oral and IV pain medications. Physical Therapy followed him through his hospital stay. 325 mg aspirin by mouth twice daily was started on postoperative day #1 as DVT prophylaxis. His vital signs have been stable. He has been afebrile. His hemoglobin on the morning of June 19 was 13.3. At this time, the patient is doing well. His pain is controlled with oral pain medications only. He is ambulating with a wheeled walker. He is tolerating oral intake. He feels comfortable with discharge to home. DISCHARGE MEDICATIONS: 1. Percocet 5/325. 2. Celebrex 200 mg. 3. Colace 100 mg. 4. MiraLAX. 5. Aspirin 325 mg. For complete discharge instructions, please refer back to Dr. Parker's postoperative total knee arthroplasty patient instructions. For complete medication reconciliation, please refer back to the patient's EHR. Should he have questions or concerns prior to followup, he has been advised to contact the clinic. FERNANDEZ MOSER /[id number] BRYAN
== END 2018-06-19 16:20 | disposition home or self-care (01) | DRG 470 ==
LOC: EDSTATUS 10:00 → MW.MS 10:40
PROVIDERS: ADMIT Orthopaedic Surgery; ATTEND Orthopaedic Surgery
PROC: 0SRD0J9 Replacement of Left Knee Joint with Synthetic Substitute, Cemented, Open Approach (ICD-10-PCS; principal; 2018-06-18)
DX: M17.12 Unilateral primary osteoarthritis, left knee (principal); M94.262 Chondromalacia, left knee; M25.762 Osteophyte, left knee; I10 Essential (primary) hypertension; R01.1 Cardiac murmur, unspecified; F17.210 Nicotine dependence, cigarettes, uncomplicated; R00.1 Bradycardia, unspecified; Z90.5 Acquired absence of kidney
CPT/HCPCS: 36415; 51702; 73560-26-LT; 73560-LT; 85014; 85018; 86850; 86900; 86901; 97161-GP; 97530-GP; A9270-GY; C1713; C1776; J0131; J0171; J0690; J1885; J2250; J2274; J2704; J2795; J3010; J3490; J7050; J7120